=== PATIENT | male | born 1985 | race African-American/Black ===

== ENCOUNTER 2020-03-29 20:47 | Emergency (ER) | payer MEDICARE, MEDICAID ==
[~2020-03-29] VITALS: Ht 180.3 cm; Wt 81.7 kg
[2020-03-29 20:59] VITALS: BP 134/80
[2020-03-29] MEDS ORDERED: INVEGA SUS39 MG/0.25 IM (21:04)
== END 2020-03-29 21:44 | disposition left against medical advice (07) ==
LOC: M.ERS 20:47
DX: F41.9 Anxiety disorder, unspecified (principal); Z53.21 Procedure and treatment not carried out due to patient leaving prior to being seen by health care provider